=== PATIENT | female | born 2000 | race Caucasian/White ===

== ENCOUNTER → 2025-07-07 08:31 | Outpatient (CLI) | payer BC, SELFPAY ==
--- OUTSIDE RECORDS SUMMARY | 2025-06-05 11:15 | XMS_ITS | Encounter Summary ---
Author Organization [facility] Address [address] [place] [address] Care Team Providers Care High Speed Operator Name Role Phone Aleksey Justice MD Primary Care Provider Reason for Referral * Consultation (Routine) - Closed Specialty Diagnoses / Procedures Referred By Contac t Referred To Contact Cardiology Diagnoses Hypersomnia Procedures [place] OFFICE/OUTPATIENT NEW MODERATE MDM 45 MINUTES Aleksey Justice MD [address] [place] [address] [place] [address] Phone: tel: fax: Lazara Travis MD [address] [facility] [address] [place] [address] Phone: tel: fax: Referral ID Status Reason Start Date Expiration Date V isits Requested Visits Authorized Closed Specialty Services Required 06/05/2025 09/04/2026 1 1 Reason for Visit * Reason Comments Insomnia Snoring loud waking up tired souse thinks stops breathing most days throat sore Encounter Details Date Type Department Care Team (Late st Contact Info) Description 06/05/2025 11:15 AM EDT Office Visit [facility] [address] [place] [address] [place] [id number] Aleksey Justice MD [address] [place] [address] [place] [address] Routine general medical examination at a health care facility (Primary Dx); Hypersomnia; Generalized anxiety disorder; Urticaria; Class 2 obesity due to excess calories without serious comorbidity with body mass index (BMI) of 35.0 to 35.9 in adult; Other constipation; Seasonal allergic rhinitis due to pollen; Vitamin B12 deficiency; Vitamin D deficiency Social History Tobacco Use Types Packs/Day Years Used Date Smoking Tobacco: Never Smokeless Tobacco: Never Tobacco Cessation:Counseling Given: No Alcohol Use Standard Drinks/Week Comments Not Currently 0 (1 standard drink = 0.6 oz pur e alcohol) AUDIT-C Answer Date Recorded Q1: How often do you have a drink containing alc ohol? Never 08/16/2020 Average Number of Drinks Not on file 020 Frequency of Binge Drinking Not on file 07/25 PHQ-2 Answer Date Recorded Retired PHQ-9: Brief Depression Severity Measure Score 0 09/12/2022 Exercise Vital Sign Answer Date Recorde d On average, how many days pe r week do you engage in moderate to strenuous exercise (like a brisk walk)? 2 days 08/28/2020 On average, how many minutes do you engage in exercise at this level? 60 min 08/28/2020 PHQ-2 Answer Date Recorded Patient Health Questionnaire-2 Score 0 06/05/2025 Comments No Sex and Gender Information Value Date Recorded Sex Assigned at Not on file Legal Sex Female 10:51 AM EST Gender Identity Not on file Sexual Orientation Not on file Occupation Industry Job Start Date Job End Date Student Not on file Not on file Not on file documented as of this encounter Last Filed Vital Signs Vital Sign Reading Time Taken Comments Blood Pressure 118/70 06/05/2025 11:11 AM EDT Pulse 74 06/05/2025 11:11 AM EDT Temperature 36.9 C (98.4 F) 06/05/2025 11:11 AM EDT Respiratory Rate - - Oxygen Saturation 98% 06/05/2025 11:11 AM EDT Inhaled Oxygen Concentration - - Weight 86.9 kg (191 lb 8 oz) 06/05/2025 11:11 AM EDT Height 157.5 cm (5' 2 ) 06/05/2025 11:11 AM EDT Body Mass Index 35.03 06/05/2025 11:11 AM EDT documented in this encounter Functional Status documented as of this encounter Progress Notes * Aleksey Justice MD - 06/05/2025 12:35 PM EDTAssociated Problem(s): Vitamin D deficiency Patient reports is vitamin D deficient per blood work late 2021/early 2022 per her percussion instructor. She does not remember the exact number but says it was fairly low, and she was recommended to initiate vitamin D 5000 units daily. As I never had a formal result I would like to go ahead and recheck her vitamin D 25- hydroxy level with blood work today on 06/05/2025 with management per results. * Aleksey Justice MD - 06/05/2025 12:35 PM EDTAssociated Problem(s): Vitamin B12 deficiency With some fatigue in 2022 she had empiric vitamin B12 shot x 2 where she thought it may be helped her fatigue although we discussed it could have been a placebo effect, especially in context of her blood work from 09/12/2023 she had normal hemoglobin hematocrit very much and mid upper range and a normal MCV which is typically unusual for B12 deficiency which would have a macrocytic pattern. With his history I would like to go ahead and check a vitamin B12 level with blood work today on 06/05/2025 with management per results * Aleksey Justice MD - 06/05/2025 12:34 PM EDTAssociated Problem(s): Urticaria Pattern for many years is somewhat of a gradually progressing urticarial rash that was previously evaluated by allergy but never a clear trigger determined. Questioning that it may have been due to abath gel from [employer] previous to that again this was not definitive determined. She is seen a little bit of increased frequency of this and I provided previous EpiPen to use as needed,which we appropriate with this pattern. Advise concerns * Aleksey Justice MD - 06/05/2025 12:33 PM EDTAssociated Problem(s): Seasonal allergic rhinitis due to pollen Seasonal pattern allergies which she does well on as needed use Zyrtec and Flonase . Additional benefit of saline spray, nasal flushing. We could consider adding Singulair in future for breakthrough symptoms. Advise concerns. * Aleksey Justice MD - 06/05/2025 12:33 PM EDTAssociated Problem(s): Routine general medical examination at a health care facility Screening blood work and for additional rheumatologic/arthralgia work-up completed 09/12/2022. Repeat blood work today 06/05/2025 with management results. Notable for Tdap and flu vaccine given today 09/12/2022. Pap smear reported as - October 2022, she will be due for repeat October 2025 with hergynecology. * Aleksey Justice MD - 06/05/2025 12:32 PM EDTAssociated Problem(s): Other constipation Evaluated in detail 06/27/2022 where she had a secondary rectal fissure. In general her bowels are doing better every once while they are a bit harder but she does not require MiraLAX dosing. Continue recommendation of daily fiber, probiotic and improve dietary intake. If she did have transient harder bowel meant she could still use MiraLAX on an as-needed basis. Advise any worsening * Aleksey Justice MD - 06/05/2025 12:32 PM EDTAssociated Problem(s): Hypersomnia Discussed in detail 06/05/2025 with what sounds like somewhat longstanding pattern of snoring and more recently noted witnessed breath-holding from her spouse, in addition to daytime sleepiness and not feeling as refreshed in the morning time. 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 As such thisis potentially concerning for obstructive sleep apnea and will refer to have this evaluated furtherand I appreciate that input. 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 No SI/HI. Recommend lifestyle modifications benefit mood, including regular exercise, good communication, pursuit of enjoyable activities, etc. Advise concerns. * Aleksey Justice MD - 06/05/2025 12:30 PM EDTAssociated Problem(s): Class 2 obesity due to excess calories without serious comorbidity with bodymass index (BMI) of 35.0 to 35.9 in adult Modest and gradual increasing weight pattern over the last year or 2 coinciding with difficulty in a healthier diet and activity level through early part of veterinary school. Reinforced importance healthy diet, exercise and attempting a modest weight loss * Swetha Stokes MA - 06/05/2025 11:15 AM EDT Venipuncture Blood Specimen Collection Venipuncture performed in left arm by Swetha Stokes MA with good hemostasis. Patient tolerated the procedure well without complications. 06/05/25 Swetha Stokes MA * Aleksey Justice MD - 06/05/2025 11:15 AM EDT Images from the original note were not included. Female Physical Note Date: 06/05/2025 Patient Name: Donovan Christensen : 2000 Chief Complaint Patient presents with Insomnia Snoring loud waking up tired souse thinks stops breathing most days throat sore History of Present Illness: Donovan Christensen is a 25 y.o. female who is here today for their annual health maintenance and physical. Patient presents today for complete physical exam and follow-up visiton the medical problems as well as new concern. Main concern is related to some sleeping difficulty. She apparently is longstanding been a loud snorer but even seems to be more prominent recently and also her spouse can witness her sometimes breath-holding. She also wakes in the morning, with a bitof a sore throat. She does find it hard to determine daytime sleepiness and morning time fatigue incontext of her ongoing veterinary school attendance, but even in the last month and a half where she has been out of school and just doing more of her normal job in the summer break she still wakes up not feeling refreshed and feels sleepy during the daytime. As such we discussed potential for obstructive sleep apnea and she would be interested in being evaluated. Otherwise related to anxiety predominant symptoms, discussed in detail couple years ago where it was initially thought to be more of a transient process that she has had persistence with veterinary school and in that location had seen a provider who is initiated on Lexapro 20 mg daily with hydroxyzine as needed she feels she is done well in that regard. She would be hesitant to wean off which is reasonable as there is ongoing stressors at least until she completes school. She is tolerating medicine no difficulty. Previously borderline constipation pattern seems to be doing better recently, rarely flares and does not need MiraLAX any further. Allergy pattern flares periodically but does wellwith her antihistamine nasal steroid as needed. Previous question of vitamin B12 deficiency vitaminD deficiency where she had been replaced on vitamin D, she would like to recheck her levels with today's visit. We also reviewed her history of urticarial rash which has been slightly progressed, similarly was evaluated by percussion instructor a couple years ago and there is never a clear trigger, generally does well with histamine as needed but I have also provided her an EpiPen earlier this year to have for any breakthrough significant reactions, which she has not have. Subjective Review of Systems Past Medical History, Social History, Family History and Care Team were all reviewed with patient and updated as appropriate. Current Outpatient Medications: cetirizine (zyrTEC) 10 MG tablet, Take 1 tablet by mouth Daily., Disp: 30 tablet, Rfl: 3 EPINEPHrine (EpiPen 2-Sharath) 0.3 MG/0.3ML solution auto-injector injection, Inject 0.3 mL into the appropriate muscle as directed by prescriber Daily As Needed., Disp: , Rfl: escitalopram (LEXAPRO) 20 MG tablet, , Disp: , Rfl: fluticasone (FLONASE) 50 MCG/ACT nasal spray, 2 sprays into the nostril(s) as directed by provider Daily., Disp: 15.8 mL, Rfl: 3 hydrOXYzine (ATARAX) 25 MG tablet, Take 1 tablet by mouth 3 (Three) Times a Day As Needed for Itching., Disp: , Rfl: Current Facility-Administered Medications: levonorgestrel (KYLEENA) 19.5 MG IUD 1 each, 1 each, Intrauterine, Once, Nemo, Shobha Lavinia, SKEIN DYER Allergies Allergen Reactions Chlorine Rash Latex Rash Penicillins Hives and Rash Health Maintenance Summary Current Care Gaps CHLAMYDIA SCREENING (Yearly) Overdue since 09/12/2023 09/12/2022 Chlamydia trachomatis, LUISITO component of Chlamydia trachomatis, Neisseria gonorrhoeae, PCR - Urine, Urine, Clean Catch 08/28/2020 Chlamydia trachomatis, LUISITO component of Chlamydia trachomatis, Neisseria gonorrhoeae, PCR - Swab, Cervix COVID-19 Vaccine () Overdue since 07/24/2024 09/26/2021 Imm Admin: COVID-19 (MODERNA) BOOSTER 02/22/2021 Imm Admin: COVID-19 (MODERNA) 1st, 2nd, 3rd Dose Only 01/24/2021 Imm Admin: COVID-19 (MODERNA) 1st, 2nd, 3rd Dose Only ANNUAL PHYSICAL (Yearly) Never done No completion, postpone, or frequency change history exists for this topic. Upcoming INFLUENZA VACCINE (Yearly - August to January) Next due on 08/23/2025 09/12/2022 Imm Admin: Influenza, Unspecified 09/12/2022 Imm Admin: Fluzone Quad >6mos (Multi-dose) 08/28/2020 Imm Admin: FluLaval/Fluzone >6mos 09/14/2018 Imm Admin: Influenza, Unspecified 09/01/2017 Imm Admin: Flu Vaccine Quad PF >36MO Only the first 5 history entries have been loaded, but more history exists. PAP SMEAR (Every 3 Years) Next due on 10/24/2025 10/24/2022 LIQUID-BASED PAP SMEAR, [facility] ([facility]) TDAP/TD VACCINES (3 - Td or Tdap) Next due on 09/12/2032 09/12/2022 Imm Admin: Tdap 11/26/2011 Imm Admin: Tdap Completed or No Longer Recommended HEPATITIS C SCREENING Completed 06/05/2025 Order placed for Hepatitis C Antibody by Aleksey Justice MD 09/12/2022 Hep C Virus Ab component of Hepatitis C Antibody HPV VACCINES (Series Information) Completed 06/24/2012 Imm Admin: HPV Quadrivalent 01/28/2012 Imm Admin: HPV Quadrivalent 11/26/2011 Imm Admin: HPV Quadrivalent Pneumococcal Vaccine 0-49 (Series Information) Aged Out 08/03/2002 Imm Admin: PEDS-Pneumococcal Conjugate (PCV7) 2001 Imm Admin: PEDS-Pneumococcal Conjugate (PCV7) 2001 Imm Admin: PEDS-Pneumococcal Conjugate (PCV7) 2001 Imm Admin: PEDS-Pneumococcal Conjugate (PCV7) MENINGOCOCCAL B VACCINE (Series Information) Aged Out No completion, postpone, or frequency change history exists for this topic. Immunization History Administered Date(s) Administered COVID-19 (MODERNA) 1st,2nd,3rd Dose Monovalent 01/24/2021, 02/22/2021 COVID-19 (MODERNA) Monovalent Original Booster 09/26/2021 DTaP, Unspecified 2001, 2001, 2001, 11/02/2002, 05/07/2005 Flu Vaccine Quad PF >36MO 09/01/2017 Fluzone (or Fluarix & Flulaval for VFC) >6mos 09/01/2017, 08/28/2020 Fluzone Quad >6mos (Multi-dose) 09/12/2022 HPV Quadrivalent 11/26/2011, 01/28/2012, 06/24/2012 Hep B, Unspecified 2001, 2001, 2001 Hepatitis A 11/26/2011, 01/14/2013 Hepatitis A Pediatric Unspecified 11/26/2011, 01/14/2013 HiB 2001, 2001, 2001, 11/02/2002 IPV 2001, 2001, 05/04/2002, 05/07/2005 Influenza, Unspecified 12/07/2002, 08/29/2005, 09/19/2006, 10/06/2007, 10/04/2008, 08/15/2009, 08/17/2010, 09/09/2012, 09/14/2018, 09/12/2022 MMR 08/03/2002, 05/07/2005 Meningococcal Conjugate 11/26/2011, 06/22/2018 PEDS-Pneumococcal Conjugate (PCV7) 2001, 2001, 2001, 08/03/2002 Tdap 11/26/2011, 09/12/2022 Varicella 05/04/2002, 05/28/2007 Colorectal Screening: Last Completed Colonoscopy This patient has no relevant Health Maintenance data. Pap: Last Completed Pap Smear Upcoming PAP SMEAR (Every 3 Years) Next due on 10/24/2025 10/24/2022 LIQUID-BASED PAP SMEAR, [facility] ([facility]) Mammogram: Last Completed Mammogram This patient has no relevant Health Maintenance data. CT for Smoker (Age 50-80, 20 pk yr): Not applicable Bone Density/DEXA (Age 65 or high risk): Not applicable. Hep C (Age 18-79 once): Pending with blood work 06/05/2025 HIV (Age 15-65 once): Pending with blood work 06/05/2025 A1c: No results found for: HGBA1C Lipid panel: No results found for: LIPIDEXCLUSI The ASCVD Risk score (Margie DK, et al., 2019) failed to calculate for the following reasons: The 2019 ASCVD risk score is only valid for ages 40 to 79 Tobacco Use: Low Risk (06/05/2025) Patient History Smoking Tobacco Use: Never Smokeless Tobacco Use: Never Passive Exposure: Not on file Social History Substance and Sexual Activity Alcohol Use Not Currently Social History Substance and Sexual Activity Drug Use Never Diet/Physical activity: Ongoing attempts to improve dietary intake and activity level the difficulty maintaining especially with the schedule of veterinary school. She will continue to make efforts to improve. Social History Substance and Sexual Activity Sexual Activity Yes Partners: Male control/protection: I.U.D. No LMP recorded (lmp unknown). Patient has had an implant. Depression: PHQ-2 Depression Screening PHQ-9 Depression Screening Little interest or pleasure in doing things? Not at all Feeling down, depressed, or hopeless? Not at all PHQ-2 Total Score 0 Trouble falling or staying asleep, or sleeping too much? Feeling tired or having little energy? Poor appetite or overeating? Feeling bad about yourself - or that you are a failure or have let yourself or your family down? Trouble concentrating on things, such as reading the newspaper or watching television? Moving or speaking so slowly that other people could have noticed? Or the opposite - being so fidgety or restless that you have been moving around a lot more than usual? Thoughts that you would be better off , or of hurting yourself in some way? PHQ-9 Total Score If you checked off any problems, how difficult have these problems made it for you to do your work,take care of things at home, or get along with other people? Not difficult at all Intimate partner violence: (Screen on initial visit, women, women with injuries, older adult with injury or evidence of neglect): Violence can be a problem in many people's lives, so I now ask every patient about trauma or abuse they may have experienced in a relationship. Stress/Safety - Do you feel safe in your relationship? Afraid/Abused - Have you ever been in a relationship where you were threatened, hurt, or afraid? Friend/Family - Are your friends aware you have been hurt? Emergency Plan - Do you have a safe place to go and the resources you need in an emergency? Osteoporosis: Ost menopausal women < 65 with RF (advancing age, previous fracture, glucocorticoid therapy, parental hip fracture, low body weight, current cigarette smoking, excessive alcohol consumption, rheumatoid arthritis, secondary osteoporosis [hypogonadism/premature menopause, malabsorption, chronic liver disease, IBD]). All women 65 or older Objective Physical Exam: Vitals: 06/05/25 1111 BP: 118/70 BP Location: Right arm Patient Position: Sitting Cuff Size: Adult Pulse: 74 Temp: 98.4 ??F (36.9 ??C) TempSrc: Temporal SpO2: 98% Weight: 86.9 kg (191 lb 8 oz) Height: 157.5 cm (62 ) Facility age limit for growth %tammie is 20 years. Body mass index is 35.03 kg/m??. Physical Exam Constitutional: General: She is not in acute distress. Appearance: Normal appearance. She is not ill-appearing, toxic-appearing or diaphoretic. HENT: Head: Normocephalic and atraumatic. Right Ear: Tympanic membrane, ear canal and external ear normal. Left Ear: Tympanic membrane, ear canal and external ear normal. Nose: Rhinorrhea present. Comments: Mild clear rhinorrhea, pale mucosa Mouth/Throat: Mouth: Mucous membranes are moist. Pharynx: Oropharynx is clear. No oropharyngeal exudate or posterior oropharyngeal erythema. Comments: Notable absence of any significant tonsil enlargement Eyes: Extraocular Movements: Extraocular movements intact. Conjunctiva/sclera: Conjunctivae normal. Pupils: Pupils are equal, round, and reactive to light. Neck: Vascular: No carotid bruit. Cardiovascular: Rate and Rhythm: Normal rate and regular rhythm. Pulses: Normal pulses. Heart sounds: Normal heart sounds. No murmur heard. No friction rub. No gallop. Pulmonary: Effort: Pulmonary effort is normal. No respiratory distress. Breath sounds: Normal breath sounds. No stridor. No wheezing. Abdominal: General: Abdomen is flat. Bowel sounds are normal. There is no distension. Palpations: Abdomen is soft. There is no mass. Tenderness: There is no abdominal tenderness. There is no guarding or rebound. Hernia: No hernia is present. Genitourinary: Comments: Deferred as obtained through gynecology Musculoskeletal: Cervical back: Neck supple. No tenderness. Right lower leg: No edema. Left lower leg: No edema. Lymphadenopathy: Cervical: No cervical adenopathy. Skin: General: Skin is warm and dry. Capillary Refill: Capillary refill takes less than 2 seconds. Findings: No rash. Neurological: General: No focal deficit present. Mental Status: She is alert and oriented to person, place, and time. Mental status is at baseline. Psychiatric: Mood and Affect: Mood normal. Behavior: Behavior normal. Thought Content: Thought content normal. Judgment: Judgment normal. Procedures Assessment / Plan Assessment/Plan: Diagnoses and all orders for this visit: 1. Routine general medical examination at a health care facility (Primary) Assessment & Plan: Screening blood work and for additional rheumatologic/arthralgia work-up completed 09/12/2022. Repeat blood work today 06/05/2025 with management results. Notable for Tdap and flu vaccine given today 09/12/2022. Pap smear reported as - October 2022, she will be due for repeat October 2025 with hergynecology. Orders: - CBC & Differential; Future - Comprehensive Metabolic Panel; Future - UA / M With / Rflx Culture([facility] ONLY) - Urine, Clean Catch - Lipid Panel; Future - TSH Rfx On Abnormal To Free T4; Future - Hemoglobin A1c; Future - Hepatitis C Antibody; Future - HIV-1 / O / 2 Ag / Antibody; Future - HIV-1 / O / 2 Ag / Antibody - Hepatitis C Antibody - Hemoglobin A1c - TSH Rfx On Abnormal To Free T4 - Lipid Panel - Comprehensive Metabolic Panel - CBC & Differential 2. Hypersomnia Assessment & Plan: Discussed in detail 06/05/2025 with what sounds like somewhat longstanding pattern of snoring and more recently noted witnessed breath-holding from her spouse, in addition to daytime sleepiness and not feeling as refreshed in the morning time. 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 As such this is potentially concerning for obstructive sleep apnea and will refer to have this evaluated further and I appreciate that input. Orders: - Ambulatory Referral to Cardiology for Other; Hypersomnia symptoms concerning for sleep apnea 3. 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 No SI/HI. Recommend lifestyle modifications benefit mood, including regular exercise, good communication, pursuit of enjoyable activities, etc. Advise concerns. 4. Urticaria Assessment & Plan: Pattern for many years is somewhat of a gradually progressing urticarial rash that was previously evaluated by allergy but never a clear trigger determined. Questioning that it may have been due to abath gel from [employer] previous to that again this was not definitive determined. She is seen a little bit of increased frequency of this and I provided previous EpiPen to use as needed,which we appropriate with this pattern. Advise concerns 5. Class 2 obesity due to excess calories without serious comorbidity with body mass index (BMI) of35.0 to 35.9 in adult Assessment & Plan: Modest and gradual increasing weight pattern over the last year or 2 coinciding with difficulty in a healthier diet and activity level through early part of veterinary school. Reinforced importance healthy diet, exercise and attempting a modest weight loss 6. Other constipation Assessment & Plan: Evaluated in detail 06/27/2022 where she had a secondary rectal fissure. In general her bowels are doing better every once while they are a bit harder but she does not require MiraLAX dosing. Continue recommendation of daily fiber, probiotic and improve dietary intake. If she did have transient harder bowel meant she could still use MiraLAX on an as-needed basis. Advise any worsening 7. Seasonal allergic rhinitis due to pollen Assessment & Plan: Seasonal pattern allergies which she does well on as needed use Zyrtec and Flonase . Additional benefit of saline spray, nasal flushing. We could consider adding Singulair in future for breakthrough symptoms. Advise concerns. 8. Vitamin B12 deficiency Assessment & Plan: With some fatigue in 2022 she had empiric vitamin B12 shot x 2 where she thought it may be helped her fatigue although we discussed it could have been a placebo effect, especially in context of her blood work from 09/12/2023 she had normal hemoglobin hematocrit very much and mid upper range and a normal MCV which is typically unusual for B12 deficiency which would have a macrocytic pattern. With his history I would like to go ahead and check a vitamin B12 level with blood work today on 06/05/2025 with management per results Orders: - Vitamin B12; Future - Vitamin B12 9. 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 She does not remember the exact number but says it was fairly low, and she was recommended to initiate vitamin D 5000 units daily. As I never had a formal result I would like to go ahead and recheck her vitamin D 25- hydroxy level with blood work today on 06/05/2025 with management per results. Orders: - Vitamin D,25-Hydroxy; Future - Vitamin D,25-Hydroxy Vaccine Counseling: Healthcare Maintenance: Counseling provided based on age appropriate USPSTF guidelines. Class 2 Severe Obesity (BMI >=35 and <=39.9). Obesity-related health conditions include the following: Hypersomnia symptoms pending obstructive sleep apnea evaluation. Obesity is unchanged. BMIis is above average; BMI management plan is completed. We discussed low calorie, low carb based diet program, portion control, increasing exercise, and joining a fitness center or start home based exercise program. Donovan Christensen voices understanding and acceptance of this advice and will call back with any further questions or concerns. AVS with preventive healthcare tips printed for patient. Follow Up: No follow-ups on file. Aleksey Justice MD [facility] Francie documented in this encounter Plan of Treatment Scheduled Referrals Name Type Priority Associated Diagnoses Order Schedule Ambulatory Referral to Cardiology for Other; Hypersomnia symptoms concerning for sleep apnea Outpatient Referral Routine Hypersomnia Ordered: 06/05/2025 documented as of this encounter Procedures Procedure Name Priority Date/Time Associated Diagnosis Comments TSH RFX ON ABNORMAL TO FREE T4 Routine 06/05/2025 11:59 AM EDT Routine general medical examination at a health care facility UA/M W/RFLX CULTURE ([facility] ONLY) Routine 06/05/2025 11:59 AM EDT Routine general medical examination at a health care facility ~MICROSCOPIC EXAMINATION Routine 06/05/2025 11:59 AM EDT HIV-1/O/2 ANTIGEN/ANTIBODY Routine 06/05/2025 11:59 AM EDT Routine general medical examination at a health care facility HEPATITIS C ANTIBODY Routine 06/05/2025 11:59 AM EDT Routine general medical examination at a health care facility VITAMIN D,25-HYDROXY Routine 06/05/2025 11:59 AM EDT Vitamin D deficiency CBC AND DIFFERENTIAL Routine 06/05/2025 11:59 AM EDT Routine general medical examination at a health care facility HEMOGLOBIN A1C Routine 06/05/2025 11:59 AM EDT Routine general medical examination at a health care facility VITAMIN B12 Routine 06/05/2025 11:59 AM EDT Vitamin B12 deficiency LIPID PANEL Routine 06/05/2025 11:59 AM EDT Routine general medical examination at a health care facility COMPREHENSIVE METABOLIC PANEL Routine 06/05/2025 11:59 AM EDT Routine general medical examination at a [facility] care facility documented in this encounter Results * Microscopic Examination - (06/05/2025 11:59 AM EDT) WBC, UA 0-5 0 - 5 /hpf [facility] RBC, UA 0-2 0 - 2 /hpf [facility] Epithelial Cells (non renal) 0-10 0 - 10 /hpf [facility] Casts None seen None seen /lpf [facility] Bacteria, UA Few None seen/Few [facility] 06/05/2025 11:5 9 AM EDT 06/05/2025 Comment:Urine Release to [facility] ([facility]BULATORY) - 06/06/2025 7:06 AM EDT Performed at: 01 - [facility] [address], [place], [place] [id number] Wheel Truing Machine Tender: Mason Clifton PhD, Phone: [phone] us Aleksey Justice MD URINE ORDERABLES Final Result [facility] (AMBULATORY) [address] [place] [address], [facility] [address] [place] [address], * Vitamin B12 (06/05/2025 11:59 AM EDT) Vitamin B-12 444 232 - 1,245 pg/mL [facility] Blood 06/05/2025 11:5 9 AM EDT 06/05/2025 Comment:[facility] to [facility] - 06/06/2025 10:07 AM EDT Performed at: 01 - [facility] [address] [id number] Wheel Truing Machine Tender: Mason Clifton PhD, Phone: [phone] Aleksey Justice MD LAB BLOOD ORDERABLES Final Resul t [facility] [address] [place] [address], [facility] [address] [place] [address], * (ABNORMAL) Vitamin D,25-Hydroxy (06/05/2025 11:59 AM EDT) 25 Hydroxy, Vitamin D 19.5(L) 30.0 - 100.0 ng/mL [facility] Comment: Vitamin D deficiency has been defined by the [place] of [employer] and an Endocrine Society practice guideline as a level of serum 25-OH vitamin D less than 20 ng/mL (1,2). The Endocrine Society went on to further define vitamin D insufficiency as a level between 21 and 29 ng/mL (2). 1. IOM ([place] of Medicine). 2010. Dietary reference intakes for calcium and D. [place]: The National Academies Press. 2. Fina MF, [place], [place] COTTO, et al. Evaluation, treatment, and prevention of vitamin D deficiency: an Endocrine Society clinical practice guideline. JCEM. 2010; 96(7):1911-30. Blood 06/05/2025 11:5 9 AM EDT 06/05/2025 Comment:Blood Release to [facility] - 06/06/2025 10:07 AM EDT Performed at: 01 - [facility] [place] [address] [place], [place] [id number] Wheel Truing Machine Tender: Mason Clifton PhD, Phone: [phone] us Aleksey Justice MD LAB BLOOD ORDERABLES Final Resul t Performing Organization Address City/[facility] Co de Phone Number [facility] [address] [place] [address], [facility] [address] [place] [address], * HIV-1 / O / 2 Ag / Antibody (06/05/2025 11:59 AM EDT) HIV Screen 4th Gen w/RFX (Reference) Non Reactive Non Reactive [facility] Comment: HIV-1/HIV-2 antibodies and HIV-1 p24 antigen were NOT detected. There is no laboratory evidence of HIV infection. HIV Negative Blood 06/05/2025 11:5 9 AM EDT 06/05/2025 Comment:Blood Release to [facility] (AMBULATORY) - 06/06/2025 10:07 AM EDT Performed at: - [facility] [place] [address] [place] [id number] Wheel Truing Machine Tender: Mason Clifton PhD, Phone: [phone] us Aleksey Justice MD LAB BLOOD ORDERABLES Final Resul t Performing Organization Address City/[facility] Co de Phone Number [facility] [address] [place] [address], [facility] [address] [place] [address], * Hepatitis C Antibody (06/05/2025 11:59 AM EDT) Hep C Virus Ab Non Reactive Non Reactive [facility] Comment: HCV antibody alone does not differentiate between previously resolved infection and active infection. Equivocal and Reactive HCV antibody results should be followed up with an HCV RNA test to support the diagnosis of active HCV infection. Blood 06/05/2025 11:5 9 AM EDT 06/05/2025 Comment:Blood Release to [facility] - 06/06/2025 10:07 AM EDT Performed at: 01 - [facility] [id number] Wheel Truing Machine Tender: Mason Clifton PhD, Phone: [phone] us Aleksey Justice MD LAB BLOOD ORDERABLES Final Resul t Performing Organization Address [facility] Co de Phone Number [facility] [address] [place] [address], [facility] [address] [place] [address], * Hemoglobin A1c (06/05/2025 11:59 AM EDT) Hemoglobin A1C 5.3 4.8 - 5.6 % [facility] Comment: Prediabetes: 5.7 - 6.4 Diabetes: >6.4 Glycemic control for adults with diabetes: <7.0 Blood 06/05/2025 11:5 9 AM EDT 06/05/2025 Comment:Blood Release to [facility] (AMBULATORY) - 06/06/2025 10:07 AM EDT Performed at: - [address] [id number] Wheel Truing Machine Tender: Mason Clifton PhD, Phone: [phone] us Aleksey Justice MD LAB BLOOD ORDERABLES Final Resul t Performing Organization Address [facility] Co de Phone Number [facility] [address] [place] [address], [place] [phone] [facility] [address] [place] [address], [place] [phone] * TSH Rfx On Abnormal To Free T4 (06/05/2025 11:59 AM EDT) TSH 0.816 0.450 - 4.500 uIU/mL [facility] Blood 06/05/2025 11:5 9 AM EDT 06/05/2025 Comment:Blood Release to [facility] ([facility]) - 06/06/2025 10:07 AM EDT Performed at: 01 - [facility] [address] [id number] Wheel Truing Machine Tender: Mason Clifton PhD, Phone: [phone] us Aleksey Justice MD LAB BLOOD ORDERABLES Final Resul t Performing Organization Address City/[facility]/ZIP Co de Phone Number [facility] ([facility]) [address] [place] [address], [place] [phone] [facility] [address] [place] [address], [place] [phone] * (ABNORMAL) Lipid Panel (06/05/2025 11:59 AM EDT) [facility] Total Cholesterol 148 100 - 199 mg/dL [facility] Triglycerides 106 0 - 149 mg/dL [facility] HDL Cholesterol 37(L) >39 mg/dL [facility] VLDL Cholesterol Dorian 20 5 - 40 mg/dL [facility] LDL Chol Calc (NIH) 91 0 - 99 mg/dL [facility] Blood 06/05/2025 11:5 9 AM EDT 06/05/2025 Comment:Blood Release to [facility] (AMBULATORY) - 06/06/2025 10:07 AM EDT Performed at: 01 - [facility] [address] [id number] Wheel Truing Machine Tender: Mason Clifton PhD, Phone: [phone] us Aleksey Justice MD LAB BLOOD ORDERABLES Final Resul t Performing Organization Address City/[facility]/ZIP Co de Phone Number [facility] (AMBULATORY) [address] [place] [address], [place] [phone] [facility] [address] [place] [address], [place] [phone] * UA / M With / Rflx Culture([facility] ONLY) - Urine, Clean Catch (06/05/2025 11:59 AM EDT) [facility] Specific [place], UA 1.024 1.005 - 1.030 [facility] pH, UA 5.0 5.0 - 7.5 [facility] Color, UA Yellow Yellow [facility] Appearance, UA Clear Clear [facility] Leukocytes, UA Negative Negative [facility] Protein Negative Negative/Tra ce [facility] Glucose, UA Negative Negative [facility] Ketones Negative Negative [facility] Blood, UA Negative Negative [facility] Bilirubin, UA Negative Negative [facility] Urobilinogen, UA 0.2 0.2 - 1.0 mg/dL [facility] Nitrite, UA Negative Negative [facility] Microscopic Examination Comment [facility] Comment:Microscopic follows if indicated. Microscopic Examination See below: [facility] Comment:Microscopic was cesar cated and was performed. Urinalysis Reflex Comment [facility] Comment:This specimen will n ot reflex to a Urine Culture. Urine Urine specimen obtained by clean catch procedure / Unknown 06/05/2025 11:59 AM EDT 06/05/2025 Comment:Urine Release to [facility] (AMBULATORY) - 06/06/2025 7:06 AM EDT Performed at: - [address] [id number] Wheel Truing Machine Tender: Mason Clifton PhD, Phone: [phone] Aleksey Justice MD URINE ORDERABLES Final Result [facility] (AMBULATORY) [address] [place] [address], [facility] [address] [place] [address], * (ABNORMAL) Comprehensive Metabolic Panel (06/05/2025 11:59 AM EDT) [facility] Glucose 84 70 - 99 mg/dL [facility] BUN 13 6 - 20 mg/dL [facility] Creatinine 0.74 0.57 - 1.00 mg/dL [facility] EGFR Result 116 >59 mL/min/1.7 3 [facility] BUN/Creatinine Ratio 18 9 - 23 [facility] Sodium 141 134 - 144 mmol/L [facility] Potassium 4.4 3.5 - 5.2 mmol/L [facility] Chloride 107(H) 96 - 106 mmol/L [facility] Total CO2 21 20 - 29 mmol/L [facility] Calcium 8.9 8.7 - 10.2 mg/dL [facility] Total Protein 6.4 6.0 - 8.5 g/dL [facility] Albumin 4.3 4.0 - 5.0 g/dL [facility] Globulin 2.1 1.5 - 4.5 g/dL [facility] Total Bilirubin 0.3 0.0 - 1.2 mg/dL [facility] Alkaline Phosphatase 87 44 - 121 IU/L [facility] AST (SGOT) 16 0 - 40 IU/L [facility] ALT (SGPT) 16 0 - 32 IU/L [facility] Blood 06/05/2025 11:5 9 AM EDT 06/05/2025 Comment:[facility] - 06/06/2025 10:07 AM EDT Performed at: - [address] [id number] Wheel Truing Machine Tender: Mason Clifton PhD, Phone: [phone] Aleksey Justice MD LAB BLOOD ORDERABLES Final Resul t [facility] [address] [place] [address], [facility] [address] [place] [address], * (ABNORMAL) CBC & Differential (06/05/2025 11:59 AM EDT) WBC 6.0 3.4 - 10.8 x10E3/uL [facility] RBC 4.84 3.77 - 5.28 x10E6/uL [facility] Hemoglobin 13.8 11.1 - 15.9 g/dL [facility] Hematocrit 44.4 34.0 - 46.6 % [facility] MCV 92 79 - 97 fL [facility] MCH 28.5 26.6 - 33.0 pg [facility] MCHC 31.1(L) 31.5 - 35.7 g/dL [facility] RDW 13.1 11.7 - 15.4 % [facility] Platelets 217 150 - 450 x10E3/uL [facility] Neutrophil Rel % 54 Not Estab. % [facility] Lymphocyte Rel % 36 Not Estab. % [facility] Monocyte Rel % 7 Not Estab. % [facility] Eosinophil Rel % 3 Not Estab. % [facility] Basophil Rel % 0 Not Estab. % [facility] Neutrophils Absolute 3.2 1.4 - 7.0 x10E3/uL [facility] Lymphocytes Absolute 2.2 0.7 - 3.1 x10E3/uL [facility] Monocytes Absolute 0.4 0.1 - 0.9 x10E3/uL [facility] Eosinophils Absolute 0.2 0.0 - 0.4 x10E3/uL [facility] Basophils Absolute 0.0 0.0 - 0.2 x10E3/uL [facility] Immature Granulocyte Rel % 0 Not Estab. % [facility] Immature Grans Absolute 0.0 0.0 - 0.1 x10E3/uL [facility] Blood 06/05/2025 11:5 9 AM EDT 06/05/2025 Comment:Blood Release to prosper Poole [facility] (AMBULATORY) - 06/06/2025 10:07 AM EDT Performed at: 01 - [facility] [id number] Wheel Truing Machine Tender: Mason Clifton PhD, Phone: [phone] Aleksey Justice MD LAB BLOOD ORDERABLES Final Resul t [facility] [address] [place] [address], [facility] [address] [place] [address], documented in this encounter Visit Diagnoses Diagnosis Routine general medical examination at a health care facility- Primary Hypersomnia Hypersomnia, unspecified Generalized anxiety disorder Urticaria Unspecified urticaria Class 2 obesity due to excess calories without serious comorbidity with body mass index (BMI) of 35.0 to 35.9 in adult Other constipation Seasonal allergic rhinitis due to pollen Vitamin B12 deficiency Other B-complex deficiencies Vitamin D deficiency documented in this encounter Care Teams High Speed Operator Relationship Specialty Start Date End Date Aleksey Justice MD [address] [place] [address] PCP - General Internal Medicine 06/27/22 documented as of this encounter
--- OUTSIDE RECORDS SUMMARY | 2025-07-07 08:45 | XMS_ITS | Encounter Summary ---
Author Organization [facility] Address [address] [place] [address] Care Team Providers Care Educational Coordinator Name Role Phone Aleksey Justice MD Primary Care Provider [phone] Encounter Details Date Type Department Care Team (Late st Contact Info) Description 06/06/2025 Results Follow-Up [facility] [address] [place] [address] [place] [address] Aleksey Justice MD [address] [place] [address] [place], [place] [id number] Social History Tobacco Use Types Packs/Day Years Used Date Smoking Tobacco: Never Smokeless Tobacco: Never Alcohol Use Standard Drinks/Week Comments Not Currently [...] on file documented as of this encounter Miscellaneous Notes * Telephone Encounter - Swetha Stokes MA - 06/06/2025 11:16 AM EDT I have spoke to patient regarding labs she had no questions documented in this encounter Plan of Treatment Not on file documented as of this encounter Visit Diagnoses Not on filedocumented in this encounter Care Teams Educational Coordinator Relationship Specialty Start Date End Date Aleksey Justice MD [address] [address] PCP - General Internal Medicine 06/27/22 documented as of this encounter
--- OUTSIDE RECORDS SUMMARY | 2025-07-07 08:45 | XMS_ITS | Encounter Summary ---
Author Organization [facility] Address [address] [place] [address] Care Team Providers Care Supervisor Dental Laboratory Name Role Phone Aleksey Justice MD Primary Care Provider Encounter Details Date Type Department Care Team (Latest Contact Info) Description 06/05/2025 Travel Social History Tobacco Use Types Packs/Day Years [...] on file documented as of this encounter Functional Status documented as of this encounter Plan of Treatment Not on file documented as of this encounter Visit Diagnoses Not on filedocumented in this encounter Care Teams Supervisor Dental Laboratory Relationship Specialty Start Date End Date Aleksey Justice MD [address] [place] [address] PCP - General Internal Medicine 06/27/22 documented as of this encounter
--- OUTSIDE RECORDS SUMMARY | 2025-07-07 08:45 | XMS_ITS | Clinical Summary ---
[facility] Address [address] [place] [address] Care Team Providers Care Floriculturist Name Role Phone Aleksey Justice MD Primary Care Provider [phone] Allergies Active Allergy Reactions Criticality Noted Date Comments Chlorine Rash Low 06/05/2025 Latex Rash Low 06/05/2025 Penicillins Hives,Rash Low 12/07/2018 Medications cetirizine (zyrTEC) 10 MG tabletIndicatio ns:Seasonal allergic rhinitis due to pollen Take 1 tablet by mouth Daily. 30 tablet 3 3 Active fluticasone (FLONASE) 50 MCG/ACT nasal sprayIndication s:Seasonal allergic rhinitis due to pollen 2 sprays into the nostril(s) as directed by provider Daily. 15.8 mL 3 3 Active escitalopram (LEXAPRO) 20 MG tablet 4 Active hydrOXYzine (ATARAX) 25 MG tablet Take 1 tablet by mouth 3 (Three) Times a Day As Needed for Itching. Active EPINEPHrine (EpiPen 2-Sharath) 0.3 MG/0.3ML solution auto-injector injection Inject 0.3 mL into the appropriate muscle as directed by prescriber Daily As Needed. Active Hospital, Clinic, or Other Facility Administered Medication Ordered Dose Route Frequency Start Date End Date Status levonorgestrel (KYLEENA) 19.5 MG IUD 1 eachIndications:Encounter for IUD insertion 1 each IU Once 11/22/2020 Active Active Problems Problem Noted Date Diagnosed Date Urticaria 06/05/2025 Assessment & Plan (06/05/2025 12:34 PM EDT): Pattern for many years is somewhat of a gradually progressing urticarial rash that was previously evaluated by allergy but never a clear trigger determined. Questioning that it may have been due to a bath gel from [employer] previous to that again this was not definitive determined. She is seen a little bit of increased frequency of this and I provided previous EpiPen to use as needed, which we appropriate with this pattern. Advise concerns Hypersomnia 06/05/2025 Assessment & Plan (06/05/2025 12:32 PM EDT): Discussed in detail 06/05/2025 with what sounds [...] evaluated further and I appreciate that input. Injury of right ankle 04/28/2024 Assessment & Plan (04/28/2024 8:23 AM EDT): presents today for complaints of right ankle pain. Patient states she was working putting down a horse on April 14 when the horse jerked, pulled her forward and her right ankle turned completely over. Patient states over the next several days she is variance significant swelling and discomfort. Despite use of ibuprofen, elevation and ice her ankle has failed to improve, actually worsened. She now notes a popping sound when moving the ankle. There is pain both at rest and with weightbearing. She denies any decreased range of motion, numbness or tingling. -No particularly concerning physical exam findings in office today. Will send for x-ray. If x-ray and can will need to pursue physical therapy in order to have MRI approved. He is advised to obtain [id number] ankle brace for increased ability. Continue use of NSAIDs, cold compress and elevation. Seasonal allergic rhinitis due to pollen 023 Assessment & Plan (06/05/2025 12:33 PM EDT): Seasonal pattern allergies which she does well on as needed use Zyrtec and Flonase . Additional benefit of saline spray, nasal flushing. We could consider adding Singulair in future for breakthrough symptoms. Advise concerns. Assessment & Plan (05/27/2023 12:53 PM EDT): Refills provided for Zyrtec and Flonase to use for the next few weeks, then as needed. Additional benefit of saline spray, nasal flushing. We could consider adding Singulair in future for breakthrough symptoms. Advise concerns. Vitamin B12 deficiency 05/27/2023 Assessment & Plan (06/05/2025 12:35 PM EDT): With some fatigue in 2022 she had [...] today on 06/05/2025 with management per results Assessment & Plan (05/27/2023 12:53 PM EDT): Not by laboratory assessment but she had empiric vitamin B12 shot a couple weeks ago x2 separate about a week where she did feel a little better related to fatigue, although I discussed this very well may have also been a bit of a placebo effect, as with her blood work from 09/12/2023 she had normal hemoglobin hematocrit very much and mid upper range and a normal MCV which is typically unusual for B12 deficiency which would have a macrocytic pattern. Nonetheless have offered to recheck B12 level, but she is going off to veterinary school. If she desires when she comes back in the next couple months we could recheck a B12 and vitamin D level at that time. Vitamin D deficiency 05/27/2023 Assessment & Plan (06/05/2025 12:35 PM EDT): Patient reports is vitamin D deficient per blood work late 2021/early 2022 per her ambulance driver paramedic. She does not remember the exact number but says it was fairly low, and she was recommended to initiate vitamin D 5000 units daily. As I never had a formal result I would like to go ahead and recheck her vitamin D 25-hydroxy level with blood work today on 06/05/2025 with management per results. Assessment & Plan (05/27/2023 12:50 PM EDT): Patient reports is vitamin D deficient per blood work late 2021/early 2022 per her ambulance driver paramedic. She does not remember the exact number but says it was fairly low, and she was recommended to initiate vitamin D 5000 units daily. As I do not have the result, its difficult to make a different recommendation and as such have recommended continue the same although we could recheck a vitamin D level she comes back in the next few months, with a vitamin B12 level. Generalized anxiety disorder 05/27/2023 Assessment & Plan (06/05/2025 12:31 PM EDT): Discussed initially 05/27/2023, she was having some increasing stressors especially with pending initiation of veterinary school and a wedding all at the same time. 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 No SI/HI. Recommend lifestyle modifications benefit mood, including regular exercise, good communication, pursuit of enjoyable activities, etc. Advise concerns. Assessment & Plan (05/27/2023 12:51 PM EDT): Patient with some recent increase stressors, coinciding with pending initiation of veterinary school and also her recent wedding, just having a very busy summer in anticipation of both of these processes. No SI/HI, I do feel this is contributing to some sensation of recent fatigue, but she also wondered if B12 deficiency and vitamin D deficiency could have been contributing, and I did state they could, but could vary based on levels. Ultimately I am more suspicious her fatigue is related to some modest stress reaction, which should improve as things in life become more stable. No SI/HI. No indication for medication at this time. Recommend lifestyle modifications benefit mood, including regular exercise, good communication, pursuit of enjoyable activities, etc. Advise any worsening. Acute cystitis without hematuria 03/06/2023 Assessment & Plan (03/06/2023 12:14 PM EDT): Known history of some tendency for UTI although she has done better recently with last such ear infection June 2021. Recurrent pattern over the last few days typical to the same although urinalysis looks quite clear, still consistent with UTI/cystitis pattern. No hematuria. Initiate nitrofurantoin 100 mg twice daily x7 days. Due to patient's tendency for secondary yeast infection, recommend initiation of probiotic and I provided Diflucan 150 mg x 1 dose if she has onset of symptoms. Push fluids. Consider cranberry juice. Advise if not improving. Need for vaccination 09/12/2022 Arthralgia 09/12/2022 Assessment & Plan (05/27/2023 12:51 PM EDT): Onset August 2023 with a evaluation related to generalized pattern of aches in essentially all the major joints of the body, including shoulders, elbows, wrist, fingers, back, hips, knees and ankles. No inflammation, no erythema. No fevers or chills, no constitutional Velez. No visual changes including no blurriness, eye discomfort. Reassuring blood work with additional ESR, CRP, uric acid, rheumatoid arthritis factor and ATTILA, management per results. Most likely felt to be postviral. Advise any recurrence. Assessment & Plan (09/12/2022 12:19 PM EDT): Onset 5 days ago with a very generalized pattern of aches in essentially all the major joints of the body, including shoulders, elbows, wrist, fingers, back, hips, knees and ankles. No inflammation, no erythema. No fevers or chills, no constitutional Velez. No visual changes including no blurriness, eye discomfort. Overall this is most likely a postviral process but due to the fairly prominent diffuse nature, family prefers to assess for rheumatologic processes. We will obtain screening blood work with additional ESR, CRP, uric acid, rheumatoid arthritis factor and ATTILA, management per results. Routine general medical exam ination at a health care facility 09/12/2022 Assessment & Plan (06/05/2025 12:33 PM EDT): Screening blood work and for additional rheumatologic/arthralgia work-up completed 09/12/2022. Repeat blood work today 06/05/2025 with management results. Notable for Tdap and flu vaccine given today 09/12/2022. Pap smear reported as - October 2022, she will be due for repeat October 2025 with her gynecology. Assessment & Plan (09/12/2022 12:17 PM EDT): Blood work ordered for general screening analysis and additional rheumatologic/arthralgia work-up as per that discussion. Notable for Tdap and flu vaccine given today 09/12/2022. Pap smear reported as -2019. Recommend every 3 years. 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 She had a flare maybe 6 months ago or so that was treated at the dentist office with Diflucan, Magic mouthwash for presumptive pattern of thrush, though in retrospect with this recurrence, and on exam today, I feel this is very much consistent with geographic tongue and not having fungal infection. In the future she would benefit from still potential Magic mouthwash which can give some symptom benefit but also an antihistamine can be further beneficial. No other clear treatment modalities are typically recommended. Class 2 obesity due to exces s calories without serious comorbidity with body mass index (BMI) of 35.0 to 35.9 in adult 09/12/2022 Assessment & Plan (06/05/2025 12:30 PM EDT): Modest and gradual increasing weight pattern over the last year or 2 coinciding with difficulty in a healthier diet and activity level through early part of veterinary school. Reinforced importance healthy diet, exercise and attempting a modest weight loss Assessment & Plan (05/27/2023 12:52 PM EDT): Modestly overweight, recommend benefits of healthy diet, exercise, especially during that school where that can be difficult. Assessment & Plan (09/12/2022 12:20 PM EDT): Modestly overweight but over estimated by BMI. Recommend healthy diet, activity level benefits of modest weight loss. Other constipation 06/27/2022 Assessment & Plan (06/05/2025 12:32 PM EDT): Evaluated in detail 06/27/2022 where she had a secondary rectal fissure. In general her bowels are doing better every once while they are a bit harder but she does not require MiraLAX dosing. Continue recommendation of daily fiber, probiotic and improve dietary intake. If she did have transient harder bowel meant she could still use MiraLAX on an as-needed basis. Advise any worsening Assessment & Plan (05/27/2023 12:52 PM EDT): Evaluated in detail 06/27/2022 where she had a secondary rectal fissure. Off MiraLAX which was previous use, continue recommendation of daily fiber, probiotic and improve dietary intake. Advise concerns. Assessment & Plan (09/12/2022 12:18 PM EDT): Evaluated in detail 06/27/2022 where she had a secondary rectal fissure. She has done very well with use of MiraLAX transitionally, fiber, probiotic and improve dietary intake with regularize bowel pattern typically. She has used MiraLAX a couple times here and there but is doing much better. Advise any recurrence. Assessment & Plan (06/27/2022 9:45 AM EDT): Modest pattern overall, not frankly constipation in the sense that she does have bowel movements daily and while they are not hard they are very large caliber, as such this is likely a milder variant that is contributing to the fissure is noted. Initiate MiraLAX at 1/4-1/2 capful daily for more chronic use to try to soften the bowels for at least a couple months, and if she does not tolerate that, is apparently made her feel a little nauseous before, she could use [id number] stool softener. This should improve symptoms over the next couple months, advised new onset changes. Rectal fissure 06/27/2022 Assessment & Plan (06/27/2022 9:45 AM EDT): Pattern of small amount of rectal bleeding a few months ago lasting a week or 2, with associated defecation pain, transition resolving and then recurring just over a week ago for a few days then almost resolving again at this time. Examination shows what appears to be a small healing rectal fissure at the 6 o'clock position, clinically this is consistent with a fissure from a large caliber bowel movements, not frankly constipation but likely a modest pattern contributing. Treatment for constipation as noted, discussion she could also use meis-hop-ypyiiql hemorrhoid type creams for symptom benefit as necessary, although she is not having any significant pain further. With such a classic presentation, no further evaluation necessary but if this recurs or becomes more bothersome, advised. Women's annual routine gynecological examination 08/28/2020 Encounters Date Type Department Care Team Description 06/08/2025 Patient rounding ([facility] only) [facility] [place] [address] [id number] Monica Agustin 06/06/2025 Results Follow-Up [facility] [address] [phone] Aleksey Justice MD 06/05/2025 11:15 AM EDT Office Visit [facility] [address] [phone] Aleksey Justice MD Routine general medical examination at a health care facility (Primary Dx); Hypersomnia; Generalized anxiety disorder; Urticaria; Class 2 obesity due to excess calories without serious comorbidity with body mass index (BMI) of 35.0 to 35.9 in adult; Other constipation; Seasonal allergic rhinitis due to pollen; Vitamin B12 deficiency; Vitamin D deficiency 06/05/2025 Travel from Last 3 Months Immunizations Immunization Administration Dates Next Due COVID-19 (MODERNA) 1st,2nd,3 rd Dose Monovalent 02/22/2021,01/24/2021 COVID-19 (MODERNA) Monovalen t Original Booster 09/26/2021 DTaP, Unspecified 05/07/2005, 2,2001,09/03,2001 Flu Vaccine Quad PF >36MO 09/01/2017 Fluzone (or Fluarix & Flulav al for VFC) >6mos 08/28/2020,09/01/2017 Fluzone Quad >6mos (Multi-dose) 09/12/2022 HPV Quadrivalent 06/24/2012,01/28/2012, 2 Hep B, Unspecified 2001,2001, 001 Hepatitis A 01/14/2013,11/26/2011 Hepatitis A Pediatric Unspecified 01/14/2013,02/2012 HiB 11/02/2002, 1,2001,07/02 IPV 05/07/2005, 2,2001,07/02 Influenza, Unspecified 09/12/2022,2017,09/09/2012,08/17,08/15/2009,10/04/2008,10/06/2007 ,09/19/2006,08/29/2005,12/07/2002 MMR 05/07/2005,08/03/2002 Meningococcal Conjugate 06/22/2018,11/26/2011 PEDS-Pneumococcal Conjugate (PCV7) 08/03,2001,2001,07/02 Tdap 09/12/2022,11/26/2011 Varicella 05/28/2007,05/04/2002 Family History Medical History Relation Name Comments Diabetes Father Abdiel Stewart Hypertension Father Abdiel Stewart Melanoma Maternal Grandfather [place] Diabetes Paternal Grandfather Aiden Terry Hypertension Paternal Grandfather Aiden Stewart Breast cancer Neg Hx Colon cancer Neg Hx Ovarian cancer Neg Hx Uterine cancer Neg Hx Relation Name Status Comments Father Abdiel Stewart Maternal Grandfather [place] Other Family History Paternal Grandfather Aiden Stewart Social History Tobacco Use Types Packs/Day Years [...] file Not on file Not on file Last Filed Vital Signs Vital Sign Reading Time Taken Comments Blood Pressure 118/70 06/05/2025 11:11 AM EDT Pulse 74 06/05/2025 11:11 AM EDT Temperature 36.9 C (98.4 F) 06/05/2025 11:11 AM EDT Respiratory Rate 18 04/27/2024 10:53 AM EDT Oxygen Saturation 98% 06/05/2025 11:11 AM EDT Inhaled Oxygen Concentration - - Weight 86.9 kg (191 lb 8 oz) 06/05/2025 11:11 AM EDT Height 157.5 cm (5' 2 ) 06/05/2025 11:11 AM EDT Body Mass Index 35.03 06/05/2025 11:11 AM EDT Plan of Treatment Health Maintenance Due Date Last Done Comments CHLAMYDIA SCREENING 09/12/2023 09/12/2022, 0 COVID-19 Vaccine ( season) 2024 09/26/2021, 02/22/2021, 01/24/2021 Annual Gynecologic Pelvic and Breast Exam 06/25/2025 06/24/2024 INFLUENZA VACCINE 08/23/2025 09/12/2022, , 08/28/2020, Additional history exists PAP SMEAR 10/24/2025 10/24/2022 ANNUAL PHYSICAL 06/05/2026 06/05/2025 TDAP/TD VACCINES (3 - Td or Tdap) 09/12/2032 09/12/2022, 11/26/2011 Pneumococcal Vaccine 0-49 Aged Out 2001, 2001, 2001, Additional history exists No longer eligible based on patient's age to complete this topic HPV VACCINES Completed 06/24/2012, 05/2012, 11/26/2011 HEPATITIS C SCREENING Completed 06/05/2025, 022 MENINGOCOCCAL B VACCINE Aged Out No l onger eligible based on patient's age to complete this topic Procedures Procedure Name Priority Date/Time Associated Diagnosis Comments CBC AND DIFFERENTIAL Routine 06/05/2025 11:59 AM EDT Routine general medical examination at a health care facility ~MICROSCOPIC EXAMINATION Routine 06/05/2025 11:59 AM EDT COMPREHENSIVE METABOLIC PANEL Routine 06/05/2025 11:59 AM EDT Routine general medical examination at a health care facility LIPID PANEL Routine 06/05/2025 11:59 AM EDT Routine general medical examination at a health care facility TSH RFX ON ABNORMAL TO FREE T4 Routine 06/05/2025 11:59 AM EDT Routine general medical examination at a health care facility HEMOGLOBIN A1C Routine 06/05/2025 11:59 AM EDT Routine general medical examination at a health care facility HEPATITIS C ANTIBODY Routine 06/05/2025 11:59 AM EDT Routine general medical examination at a health care facility HIV-1/O/2 ANTIGEN/ANTIBODY Routine 06/05/2025 11:59 AM EDT Routine general medical examination at a health care facility VITAMIN D,25-HYDROXY Routine 06/05/2025 11:59 AM EDT Vitamin D deficiency VITAMIN B12 Routine 06/05/2025 11:59 AM EDT Vitamin B12 deficiency UA/M W/RFLX CULTURE ([facility] ONLY) Routine 06/05/2025 11:59 AM EDT Routine general medical examination at a health care facility LIQUID-BASED PAP SMEAR, [facility] ([facility]) Routine 10/24/2022 4:20 PM EST Well woman exam with routine gynecological exam CHLAMYDIA TRACHOMATIS, NEISSERIA GONORRHOEAE, PCR Routine 09/12/2022 12:18 PM EDT Routine general medical examination at a health care facility from Last 3 Months or Most Recently Relevant to Health Maintenance Results * TSH Rfx On Abnormal To Free T4 (06/05/2025 11:59 AM EDT) TSH 0.816 0.450 - 4.500 uIU/mL [facility] Blood 06/05/2025 11:5 9 AM EDT 06/05/2025 Comment:Blood Release to [facility] jayson Poole [facility] (AMBULATORY) - 06/06/2025 10:07 AM EDT Performed at: 01 - [facility] [id number] Clinical Rehab Liaison: Mason [place] PhD, Phone: [phone] us Aleksey Justice MD LAB BLOOD ORDERABLES Final Resul t [facility] [address] [place] [address], [place] [phone] [facility] [address] [place] [address], * UA / M With / Rflx Culture([facility] ONLY) - Urine, Clean Catch (06/05/2025 11:59 AM EDT) Specific [place], UA 1.024 1.005 - 1.030 [facility] [...] 11:59 AM EDT 06/05/2025 Comment:Urine Release to [facility] Virg[place] [facility] (AMBULATORY) - 06/06/2025 7:06 AM EDT Performed at: 01 - [address] [id number] Clinical Rehab Liaison: Mason [place] PhD, Phone: [phone] Aleksey Justice MD URINE ORDERABLES Final Result [facility] [address] [place] [address], [facility] [address] [place] [address], * Microscopic Examination - (06/05/2025 11:59 AM EDT) Pathologist [facility] WBC, UA 0-5 0 - 5 /hpf [facility] RBC, UA 0-2 0 - 2 /hpf [facility] Epithelial Cells (non renal) 0-10 0 - 10 /hpf [facility] Casts None seen None seen /lpf [facility] Bacteria, UA Few None seen/Few [facility] 06/05/2025 11:5 9 AM EDT 06/05/2025 Comment:Urine Release to [facility] - 06/06/2025 7:06 AM EDT Performed at: 01 - [address] [id number] Clinical Rehab Liaison: Mason [place] PhD, Phone: [phone] us Aleksey Justice MD URINE ORDERABLES Final Result Performing Organization Address City/[facility]/ZIP Co de Phone Number [facility] [address] [place] [address], [place] [phone] [facility] [address] [place] [address], [place] [phone] * HIV-1 / O / 2 Ag / Antibody (06/05/2025 11:59 AM EDT) HIV Screen 4th Gen w/RFX (Reference) Non Reactive Non Reactive [facility] Comment: HIV-1/HIV-2 antibodies and HIV-1 p24 antigen were NOT detected. There is no laboratory evidence of HIV infection. HIV Negative Blood 06/05/2025 11:5 9 AM EDT 06/05/2025 Comment:Blood Release to [facility] (AMBULATORY) - 06/06/2025 10:07 AM EDT Performed at: - [address] [id number] Clinical Rehab Liaison: Mason [place] PhD, Phone: [phone] us Aleksey Justice MD LAB BLOOD ORDERABLES Final Resul t Performing Organization Address City/[facility]/ZIP Co de Phone Number [facility] [address] [place] [address], [place] [phone] [facility] [address] [place] [address], [place] [phone] * Hepatitis C Antibody (06/05/2025 11:59 AM [...] 9 AM EDT 06/05/2025 Comment:Blood Release to [facility] (AMBULATORY) - 06/06/2025 10:07 AM EDT Performed at: - [address] [id number] Clinical Rehab Liaison: Mason [place] PhD, Phone: [phone] us Aleksey Justice MD LAB BLOOD ORDERABLES Final Resul t [facility] [address] [place] [address], [facility] [address] [place] [address], * (ABNORMAL) Vitamin D,25-Hydroxy (06/05/2025 11:59 AM EDT) 25 Hydroxy, Vitamin D 19.5(L) 30.0 - 100.0 ng/mL [facility] Comment: Vitamin D deficiency has been defined by the [place] of [employer] and an Endocrine Society practice guideline as a level of serum 25-OH vitamin D less than 20 ng/mL (1,2). The Endocrine Society went on to further define vitamin D insufficiency as a level between 21 and 29 ng/mL (2). 1. IOM ([place] of [employer]). 2010. Dietary reference intakes for calcium and D. [place]: The National Academies Press. 2. Fina MF, [place]u [place], [place] COT[place], et al. Evaluation, treatment, and prevention of vitamin D deficiency: an Endocrine Society clinical practice guideline. JCEM. 2011 May; 96(7):1911-30. Blood 06/05/2025 11:5 9 AM EDT 06/05/2025 Comment:Blood Release to [facility] ([facility] - 06/06/2025 10:07 AM EDT Performed at: - [facility] [place] [address] [facility], [place], [place] [id number] Clinical Rehab Liaison: Mason [place] PhD, Phone: [phone] us Aleksey Justice MD LAB BLOOD ORDERABLES Final Resul t [facility] [address] [place] [address], [facility] [address] [place] [address], * (ABNORMAL) CBC & Differential (06/05/2025 11:59 [...] 9 AM EDT 06/05/2025 Comment:[facility] - 06/06/2025 10:07 AM EDT Performed at: - [address] [id number] Clinical Rehab Liaison: Mason Cl[place]ton PhD, Phone: [phone] us Aleksey Justice MD LAB BLOOD ORDERABLES Final Resul t Performing Organization Address [facility]/ZIP Co de Phone Number [facility] [address] [place] [address], [facility] [address] [place] [address], [place] [phone] * Hemoglobin A1c (06/05/2025 11:59 AM EDT) Pathologist [facility] Hemoglobin A1C 5.3 4.8 - 5.6 % [facility] Comment: Prediabetes: 5.7 - 6.4 Diabetes: >6.4 Glycemic control for adults with diabetes: <7.0 Blood 06/05/2025 11:5 9 AM EDT 06/05/2025 Comment:Blood Release to [facility] (AMBULATORY) - 06/06/2025 10:07 AM EDT Performed at: [address] [place] [id number] Clinical Rehab Liaison: Mason Clifton PhD, Phone: [phone] us Aleksey Justice MD LAB BLOOD ORDERABLES Final Resul t Performing Organization Address City/[facility]/ZIP Co de Phone Number [facility] ([facility]) [address] [place] [address], [facility] [address] [place] [address], [place] [phone] * Vitamin B12 (06/05/2025 11:59 AM EDT) [facility] Vitamin B-12 444 232 - 1,245 pg/mL [facility] Blood 06/05/2025 11:5 9 AM EDT 06/05/2025 Comment:Blood Release to [facility] (AMBULATORY) - 06/06/2025 10:07 AM EDT Performed at: 01 - [address] [id number] Clinical Rehab Liaison: Mason Clifton PhD, Phone: [phone] us Aleksey Justice MD LAB BLOOD ORDERABLES Final Resul t Performing Organization Address City/[facility]/ZIP Co de Phone Number [facility] (AM[facility]UL[facility]ORY) [address] [place] [address], [place] [phone] [facility] [address] [place] [address], [place] [phone] * (ABNORMAL) Lipid Panel (06/05/2025 11:59 AM EDT) [facility] Total Cholesterol 148 100 - 199 mg/dL [facility] Triglycerides 106 0 - 149 mg/dL [facility] HDL Cholesterol 37(L) >39 mg/dL [facility] VLDL Cholesterol Dorian 20 5 - 40 mg/dL [facility] LDL Chol Calc (NIH) 91 0 - 99 mg/dL [facility] Blood 06/05/2025 11:5 9 AM EDT 06/05/2025 Comment:Blood Release to [facility] (AMBULATORY) - 06/06/2025 10:07 AM EDT Performed at: - [address] [id number] Clinical Rehab Liaison: Mason Clifton PhD, Phone: [phone] us Aleksey Justice MD LAB BLOOD ORDERABLES Final Resul t Performing Organization Address City/[facility]/ZIP Co de Phone Number [facility] (AMBULATORY) [address] [place] [address], [place] [phone] [facility] [address] [place] [address], [place] [phone] * (ABNORMAL) Comprehensive Metabolic Panel (06/05/2025 11:59 AM EDT) Glucose 84 70 - 99 mg/dL [facility] [...] 9 AM EDT 06/05/2025 Comment:Blood Release to [facility] (AMBULATORY) - 06/06/2025 10:07 AM EDT Performed at: 01 - [address] [id number] Clinical Rehab Liaison: Mason Clifton PhD, Phone: [phone] us Aleksey Justice MD LAB BLOOD ORDERABLES Final Resul t [facility] (AMBULATORY) [address] [place] [address], [facility] [address] [place] [address], * LIQUID-BASED PAP SMEAR, [facility] (JERMAINE,COR,MAD) (10/24/2022 4:20 PM EST) Reference Lab Report [facility] [address] [place] [address] or [phone] Ean Carcamo M.D., Director Of Early Childhood PATIENT NAME LABORATORY NO. [address] DONOVAN STEWART [id number] AGE SEX SSN CLIENT REF # [facility] 22 2000 F [id number] [facility] [id number] REQUESTING M.D. [place] [address] ROSALINDA UHIZAR DATE COLLECTED DATE RECEIVED DATE REPORTED 10/24/2022 10/24/2022 10/27/2022 ThinPrep Pap with Cytyc Imaging DIAGNOSIS: Negative for intraepithelial lesion or malignancy Multiple factors can influence accuracy of Pap tests; therefore, screening at regular intervals is necessary for early cancer detection. SPECIMEN ADEQUACY: SATISFACTORY FOR EVALUATION Transformation zone is present. SOURCE OF SPECIMEN: CERVICAL SLIDES: 1 CLINICAL HISTORY: Well woman exam with routine gynecological exam IUD Chlamydia / Gonorrhea CHLAMYDIA TRACHOMATIS: Negative NEISSERIA GONORRHOEAE: Negative The Aptima Combo 2 assay is a target amplification nucleic acid probe test that utilizes target capture for the in vitro qualitative detection and differentiation of ribosomal RNA from Chlamydia trachomatis and Neisseria gonorrhoeae to aid in the diagnosis of chlamdial and gonococcal disease using the Savage system. WHITEWATER RAFTING GUIDE: DAVID CASTILLO (ASCP) CPT CODES: 85530, 87453, 94829 10/27/2022 12:19 PM EST [facility] ThinPrep Vial Collection / Unknown 10/24/2022 4:20 PM EST 10/24/2022 4:20 PM EST Rosalinda Huizar DRAIN TILE PRESS OPERATOR PATHOLOGY/CYTOLOGY ORDERABLES Final Result [facility]
[address] [place] [address], * Chlamydia trachomatis, Neisseria gonorrhoeae, PCR - Urine, Urine, Clean Catch (09/12/2022 12:18 PM EDT) Chlamydia trachomatis, LUISITO Negative Negative [facility] Neisseria gonorrhoeae, LUISITO Negative Negative [facility] Urine Urine specimen obtained by clean catch procedure / Unknown 09/12/2022 12:18 PM EDT 09/12/2022 Comment:Urine Release to [facility] (AMBULATORY) - 09/16/2022 6:06 AM EDT Performed at: 02 - [address] [id number] Clinical Rehab Liaison: Desi Nuñez MD, Phone: [phone] Aleksey Justice MD MICROBIOLOGY - GENERAL ORDERABLE S Final Result [facility] (AMBULATORY) [address] [place] [address], [facility] [address] [place] [address], from Last 3 Months or Most Recently Relevant to Health Maintenance Insurance [employer] [facility] PPO Member Subscriber Plan / Payer (Ef fective 2023-Present) Name:Donovan Christensen Relation to Subscriber:Spouse Name:Dillon Christensen Date of :2001 Address: [address] [place] [address] Payer ID:[id number] (NAIC) Type:Not on file Address: [facility] [id number] [address] [employer] [facility] PPO HUMANA Care Teams Floriculturist Relationship Specialty Start Date End Date Aleksey Justice MD [address] [place] [address] [place] [address] PCP - General Internal Medicine 06/27/22
--- OUTSIDE RECORDS SUMMARY | 2025-07-07 08:45 | XMS_ITS | Encounter Summary ---
Author Organization [facility] Address [address] [place] [address] Care Team Providers Care Soap Drier Operator Name Role Phone Aleksey Justice MD Primary Care Provider [phone] Encounter Details Date Type Department Care Team (Late st Contact Info) Description 06/08/2025 Patient rounding ([facility] only) [facility] [address] [place] [address] [place] [address] Monica Agustin Social History Tobacco Use Types Packs/Day Years [...] on file documented as of this encounter Progress Notes * Carrie Llanos RegSched Rep - 06/08/2025 3:11 PM EDTSummary: Rounding .A Turing Data message has been sent to the patient for patient rounding with [facility]. documented in this encounter Plan of Treatment Not on file documented as of this encounter Visit Diagnoses Not on filedocumented in this encounter Care Teams Soap Drier Operator Relationship Specialty Start Date End Date Aleksey Justice MD [address] [address] PCP - General Internal Medicine 06/27/22 documented as of this encounter
== END ==
LOC: SL 08:41
PROVIDERS: PCP Pediatrics; Visit Provider Specialist
DX: G47.33 Obstructive sleep apnea (adult) (pediatric) (principal); G47.19 Other hypersomnia; R53.83 Other fatigue
CPT/HCPCS: G0399